=== PATIENT | female | born 2005 | race Caucasian/White ===

== ENCOUNTER 2024-01-07 08:03 | Emergency (ER) | payer BC ==
[~2024-01-07] VITALS: Ht 160 cm; Wt 54.5 kg
[2024-01-07 08:07] VITALS: TEMP 98.2
[2024-01-07 08:36] LABS: BASO % 0.6 % (0.0-2.0); EOS # 0.1 K/mm3 (0.0-0.7); EOS % 2.5 % (0.0-4.0); GRAN # 2.5 K/mm3 (1.4-6.5); GRAN % 47.5 % (42.2-75.2); HEMATOCRIT 43.3 % (35.0-45.0); HEMOGLOBIN 14.7 g/dl (12.0-15.0); LYMPH # 2.1 K/mm3 (1.2-3.4); LYMPH % 39.5 % (20.0-51.0); MEAN CELL VOLUME 92 fl (80.0-95.0); MEAN CORPUSCULAR HEMOGLOBIN 31 pg (26-32); MEAN CORPUSCULAR HGB CONC 34 g/dl (33.0-37.0); MEAN PLATELET VOLUME 9.4 fl (7.4-10.4); MONO # 0.5 K/mm3 (0.1-0.6); MONO % 9.7 % (1.7-9.3); PLATELET COUNT 242 K/mm3 (130-400); RED BLOOD COUNT 4.69 M/mm3 (4.10-5.30); REDCELL DISTRIBUTION WIDTH-CV 12.2 % (11.5-14.5)
[2024-01-07 09:04] LABS: ALBUMIN 4.6 g/dL (3.5-5.0); BILIRUBIN,TOTAL 1.2 mg/dL (0.2-1.2); CALCIUM 10.3 mg/dL (8.4-10.2); CREATININE, serum 0.79 mg/dL (0.57-1.11); POTASSIUM 3.4 mEq/L (3.5-4.5); TOTAL PROTEIN 8.2 g/dl (6.2-8.1)
[2024-01-07 09:28] LABS: COLLECTION METHOD CLEAN CATCH
[2024-01-07] MEDS ORDERED: Iohexol 300 - 100 ML VIAL IV ONE (09:29)
[2024-01-07] MEDS ORDERED: NS 100 ML IV SCH (09:30)
[2024-01-07 09:35] LABS: URINE APPEARANCE CLEAR (CLEAR/HAZY); URINE BLOOD NEGATIVE (NEGATIVE); URINE COLOR YELLOW (YELLOW); URINE GLUCOSE NEGATIVE (NEGATIVE); URINE KETONE NEGATIVE (NEGATIVE); URINE NITRATE NEGATIVE (NEGATIVE); URINE PROTEIN(semi-quant) NEGATIVE (NEGATIVE); URINE UROBILINOGEN 0.2 E.U/dL (0.2-1.0)
[2024-01-07] MEDS ORDERED: fentaNYL 50 MCG/ML 2 ML VIAL IV ONE (09:45)
[2024-01-07] MEDS ORDERED: PEPCID 20MG TAB20 MG PO (10:36)
[2024-01-07] MEDS ORDERED: ZOFRAN ODT4 MG PO (10:36)
[2024-01-07 10:47] VITALS: BP 122/83; PULSE 78
== END 2024-01-07 10:49 | disposition home or self-care (01) ==
LOC: COL.ER 08:03
PROVIDERS: Family Medicine
DX: K21.9 Gastro-esophageal reflux disease without esophagitis (principal)
CPT/HCPCS: J3010; Q9967